=== PATIENT | female | born 1945 | race African-American/Black ===

== ENCOUNTER → 2018-01-18 | Outpatient (CLI) | payer OTHER | END | disposition home or self-care (01) | LOC: MAMMO 12:22 | DX: Z12.31 Encounter for screening mammogram for malignant neoplasm of breast (principal) | CPT/HCPCS: 77063; 77067 ==

== ENCOUNTER → 2018-09-24 | Outpatient (CLI) | payer OTHER ==
--- NOTE | 2018-09-24 11:25 | KCIC ---
EXAM: Dual energy x-ray absorptiometry (DEXA). HISTORY: Postmenopausal female presents for osteoporosis screening. COMPARISON: None. TECHNIQUE: Dual energy x-ray absorptiometry of the lumbar spine and left hip was performed. Calculation of bone mineral density based on standard deviations above or below the expected young adult normal value (T-score) was completed. FINDINGS: The average bone mineral density in the 1st through 4th lumbar vertebrae is 1.134 g/cmxcm, corresponding with a T-score of 0.8. The average total bone mineral density in the left hip is 0.881 g/cmxcm, corresponding with a T-score of -0.5. IMPRESSION: Normal bone mineral density. Note: Definitions established by the World Health Organization: 1. Normal: T-score is -1.0 or above. 2. Osteopenia: T-score is between -1.0 and -2.5 . 3. Osteoporosis: T-score is -2.5 or below. Electronically signed by: Ryann Salcedo MD (09/24/2018 11:22 AM) [place] [id number]
== END | disposition home or self-care (01) ==
LOC: KCIC DEXA 09:11
PROVIDERS: ATTEND Family Medicine
DX: Z13.820 Encounter for screening for osteoporosis (principal); N95.9 Unspecified menopausal and perimenopausal disorder
CPT/HCPCS: 77080

== ENCOUNTER → 2019-01-21 | Outpatient (CLI) | payer OTHER ==
--- NOTE | 2019-01-24 08:48 | RAD ---
DATE: 01/21/2019 1:43 PM EXAM: MAMMO TUTU SCREENING BILATERAL HISTORY: routine screening evaluation. COMPARISON: Prior mammographic imaging 01/18/2018, 10/23/2016, 10/22/2015, 10/15/2014 10/04/2013 Bilateral CC and MLO views of the breasts were performed. Bilateral breast tomosynthesis was performed in CC and MLO projections. This study was interpreted with the benefit of Computerized Aided Detection (CAD). FINDINGS: Breast Density: SCATTERED The breast parenchyma shows scattered fibroglandular densities. Breast parenchyma level B Benign calcifications are present. Asymmetry in the medial, inferior left breast is now more prominent, approximately 6 cm from the nipple. No suspicious left breast microcalcification. No suspicious masses, microcalcifications or architectural distortion is present to suggest malignancy in the right breast. The visualized axillae are unremarkable. IMPRESSION: Left breast focal asymmetry, findings for which additional imaging is advised. BI-RADS CATEGORY: 0 INCOMPLETE: NEEDS ADDITIONAL IMAGING EVALUATION AND/OR PRIOR MAMMOGRAMS FOR COMPARISON. RECOMMENDED FOLLOW-UP: ADD ADDITIONAL IMAGING Spot compression views with full field ML view and likely ultrasound of the left breast is recommended. PQRS compliance statement: Patient information was entered into a reminder system with a target due date for the next mammogram. Mammography is a sensitive method for finding small breast cancers, but it does not detect them all and is not a substitute for careful clinical examination. A negative mammogram does not negate a clinically suspicious finding and should not result in delay in biopsying a clinically suspicious abnormality. "Our facility is accredited by the [employer] Mammography Program."
== END | disposition home or self-care (01) ==
LOC: MAMMO 13:35
PROVIDERS: ATTEND Family Medicine
DX: Z12.31 Encounter for screening mammogram for malignant neoplasm of breast (principal); N64.89 Other specified disorders of breast
CPT/HCPCS: 77063; 77067

== ENCOUNTER → 2019-03-04 | Outpatient (CLI) | payer OTHER ==
--- NOTE | 2019-03-04 10:58 | RAD ---
DATE: 03/04/2019 EXAM: DIGITAL DIAGNOSTIC LT HISTORY: Abnormal mammogram COMPARISON: Multiple prior mammographic exams as far back as 08/10/2010 This study was interpreted with the benefit of Computerized Aided Detection (CAD). Breast Density: SCATTERED The breast parenchyma shows scattered fibroglandular densities. Breast parenchyma level B. FINDINGS: Left lower inner breast focal asymmetry is less evident upon spot compression imaging in the MLO and CC projections. Medial lateral view of the left breast again demonstrates this asymmetry. No suspicious changes are suggested as compared to multiple prior exams. IMPRESSION: Stable BI-RADS CATEGORY: 1 NEGATIVE RECOMMENDED FOLLOW-UP: 12M 12 MONTH FOLLOW-UP PQRS compliance statement: Patient information was entered into a reminder system with a target due date in one year for the next mammogram. Mammography is a sensitive method for finding small breast cancers, but it does not detect them all and is not a substitute for careful clinical examination. A negative mammogram does not negate a clinically suspicious finding and should not result in delay in biopsying a clinically suspicious abnormality. "Our facility is accredited by the [employer] Mammography [employer]."
== END | disposition home or self-care (01) ==
LOC: MAMMO 10:33
PROVIDERS: ATTEND Family Medicine
DX: R92.8 Other abnormal and inconclusive findings on diagnostic imaging of breast (principal)
CPT/HCPCS: 77065

== ENCOUNTER → 2020-02-03 | Outpatient (CLI) | payer MEDICARE, OTHER ==
--- NOTE | 2020-02-03 15:24 | KCIC ---
KNEE RIGHT 3V DATE: 02/03/2020 12:00 AM INDICATION: PRIMARY OSTEOARTHRITIS RT KNEE, PAIN 1-2 WEEKS, NO INJURY COMPARISON: None. FINDINGS: Bones: There is no evidence of acute fracture or dislocation. Superior patellar enthesophyte. Joints: Moderate medial compartment and patellofemoral compartment degenerative changes. Mild lateral compartment degenerative changes. There is no joint effusion. Miscellaneous: None. IMPRESSION: No acute osseous abnormality. Tricompartmental degenerative changes, worst and moderate in the medial and patellofemoral compartments. Electronically signed by: Hebert Alvarado MD (02/03/2020 3:21 PM) [id number]
== END ==
LOC: KCIC 14:04
PROVIDERS: ATTEND Family Medicine
DX: M17.11 Unilateral primary osteoarthritis, right knee (principal)
CPT/HCPCS: 73562

== ENCOUNTER → 2020-03-29 | Outpatient (CLI) | payer MEDICARE ==
--- NOTE | 2020-03-29 13:52 | KCIC ---
Chest radiograph 03/29/2020 12:00 AM INDICATION: Shortness of air. Occupational exposure. COMPARISON: None available TECHNIQUE: Frontal and lateral views of the chest are provided. FINDINGS: The cardiomediastinal silhouette is within normal limits. There are no pleural effusions. There is no pulmonary vascular congestion. There is no pneumothorax. The lungs are clear. No significant osseous abnormality is identified. IMPRESSION: No acute cardiopulmonary process. Electronically signed by: Bárbara Swan MD (03/29/2020 1:48 PM) [id number]
== END ==
LOC: KCIC 13:19
PROVIDERS: ATTEND Family Medicine
DX: R06.02 Shortness of breath (principal); Z57.39 Occupational exposure to other air contaminants
CPT/HCPCS: 71046

== ENCOUNTER → 2021-03-09 | Outpatient (CLI) | payer MEDICARE ==
--- NOTE | 2021-03-10 17:24 | KCIC ---
Digital Mammogram 2-D and 3-D Bilateral History: Routine screening Bilateral mammograms in CC and oblique projections were obtained with 2-D imaging and 3-D tomosynthes is imaging and reviewed on the workstation. Comparison: Mammograms from 01/21/2019, 01/18/2018, and 10/25/2016.. Findings: Breast Tissue Density B : There are scattered areas of fibroglandular density In the 9:00 position of the left breast, approximately 3 cm from the nipple at posterior depth, there is an area of possible architectural distortion. No other area of architectural distortion or eviden ce of a breast mass is seen. There are no malignant appearing calcifications. Impression: Possible architectural distortion in the 9:00 position of the left breast, 3 cm from the nipple, post erior depth. The patient gives no history of breast biopsy. Further evaluation with a diagnostic left mammogram, including 3-D rolled CC views and mediolateral views recommended. Targeted left breast ul trasound including axilla should also be performed. Assessment: BI-RADS Category 0. Incomplete. Additional imaging is recommended. Recommendation: Diagnostic left mammogram. Targeted left breast ultrasound. The patient will receive a letter with the results in the mail. Patient information will be entered i nto the mammography reminder system with a target recall date for the next mammogram. A reminder nahed er will be generated. Electronically signed by: Rose Bates MD (03/10/2021 5:22 PM) [email or web address]
== END ==
LOC: KCIC MAMMO 13:36
PROVIDERS: ATTEND Family Medicine
DX: Z12.31 Encounter for screening mammogram for malignant neoplasm of breast (principal)
CPT/HCPCS: 77063; 77067

== ENCOUNTER → 2021-03-31 | Outpatient (CLI) | payer MEDICARE ==
--- NOTE | 2021-03-31 15:02 | KCIC ---
Left breast diagnostic digital mammograms: Reason for examination: Possible architectural distortion on screening mammogram. Comparison is made to previous study dated 03/09/2021 and additional examinations dated back to. [place] compression views were obtained of the left breast in CC and true lateral projections. Parenchymal asymmetry remains present at the 8:00 position approximately 6.7 cm posterior to the nipp le. When compared to previous exams however this appears be slightly more prominent. No other nodule or architectural distortion is seen. IMPRESSION: Architectural distortion at the 8:00 B position of the left breast appears to be slightly more promin ent than on previous exams. No other architectural distortions or nodules are seen. Ultrasound to fol low. BI-RADS Category 0: Incomplete. Needs additional imaging evaluation. Left breast ultrasound: Left whole breast ultrasound including evaluation of all 4 quadrants and the retroareolar and axillar y regions of the left breast was performed. Ultrasound examination of the left breast was performed with attention to the area of mammographic co ncern. At the 8:00 position 4 cm from the nipple, there is a 6 x 4 x 4.2 mm focus of nodular asymmetr y with suggestion of some central calcification. This probably corresponds to the area of parenchymal asymmetry seen mammographically. Further evaluation with ultrasound-guided biopsy is recommended. No other focal lesions are seen. No abnormal appearing lymph nodes are seen in the axilla. IMPRESSION: 6 mm nodule at the 8:00 position 4 cm from the nipple. Further evaluation with ultrasound-guided biop sy is recommended. BI-RADS Category 4: Suspicious. These findings have been discussed with the patient and the patient's physician, Dr. Tejeda, was noti fied about these findings with message left on the nurse's answering machine at 3:00 PM on 03/31/2021 . "Our facility is accredited by the [employer] Mammography Program." This patient's information has been entered into a reminder system for the patient to be notified wit h the results of her examination and a target date for the next mammogram. Electronically signed by: Gilda Burks MD (03/31/2021 3:00 PM) [email or web address]
== END ==
LOC: KCIC MAMMO 12:57
PROVIDERS: ATTEND Family Medicine
DX: N63.24 Unspecified lump in the left breast, lower inner quadrant (principal)
CPT/HCPCS: 76641; 77065

== ENCOUNTER → 2021-04-21 | Outpatient (CLI) | payer MEDICARE ==
[~2021-04-21] MED LIST: LIDOCAINE 1% Multi-Dose 20 ML VIAL. INJ ONE
--- NOTE | 2021-04-21 10:46 | RAD ---
CLINICAL INDICATION: Left breast mass PRE-PROCEDURAL CONSULTATION: Details of the procedure and possible limitations and complications were discussed with the patient. After addressing her questions and concerns, written informed consent wa s obtained. A time out was then taken to verify patient's name and date of as well as site and laterality. PROCEDURE: The mass at the 8 o'clock position within the left breast was targeted under ultrasound. The skin of the left breast was cleansed and prepped in the typical sterile fashion. 9 cc of 1% lidoc cathy was used for local anesthesia. A small skin incision was then made to permit passage of a 14 ga uge spring activated biopsy device. 4 core specimens were obtained. An omega clip was then deployed at the biopsy site. Hemostasis was achieved. The patient tolerated the procedure well with no immediate complications. Post-procedural digital mammographic imaging of the right breast demonstrate the omega clip in approp riate position. IMPRESSION: Successful ultrasound guided core needle biopsy of a mass at the 8 o'clock position withi n the left breast. Pathology is pending. Electronically signed by: Bryson Hdz MD (04/21/2021 10:44 AM) [email or web address]
--- NOTE | 2021-04-25 15:07 | PATHOLOGY ---
[facility] Accession Number: [id number] . 01 Material submitted: . breast - LEFT BREAST MASS AT 8:00 4CMFN. Modifiers: left . 02 Diagnosis: Left breast mass at 8:00 4 cm from nipple, biopsy: - INVASIVE LOBULAR CARCINOMA, HISTOLOGIC GRADE 2. SEE COMMENT. (JPM/db/para educator; 04/22/2021) LBQ 04/25/2021 1419 Local . 02 Comment: Sections of the left breast mass at 8:00 needle biopsy reveal an invasive mammary carcinoma. The tumor cells are present in cords and small solid nests and show no evidence of tubule formation. The tumor cells are fairly uniform and possess rounded, mild to focally moderately pleomorphic nuclei. Mitotic figures are infrequent. The tumor is associated with a chronic inflammatory cell infiltrate. There are no tumor associated calcifications. There is no lymphovascular tumor invasion. A limited panel of immunoperoxidase stains is obtained and yields the following results: . AE1/AE3 (A1): Tumor cells positive. E-cadherin (A1): Tumor cells negative. AE1/AE3 (A2): Tumor cells positive. E-cadherin (A2): Tumor cells negative. . The morphologic and immunophenotypic findings are supportive of the diagnosis of an invasive lobular carcinoma, histologic grade 2. The invasive carcinoma measures approximately 8 mm in greatest dimension on the glass slide. The case is also examined by Dr. Ledesma, who concurs with the diagnosis. Breast prognostic studies will be obtained on A1, the results of which will be reported separately. . (JPM/db.para educator; 04/22/2021) . Special stains performed: Immunoperoxidase stains for AE1/AE3 on A1 and A2 and for E-cadherin on A1 and A2. . 02 Electronically signed: . Néstor Spaulding MD, Pathologist NPI- [id number] . 01 Gross description: . The specimen is received in formalin, labeled "Karo [place], left breast, 800, 4 cm FN". Received are 3 needle cores of fibrofatty tissue measuring 1.2 x 0.6 x 0.2 cm in aggregate dimensions. The specimen is submitted entirely in cassettes A1-A3. The specimen is collected at 1037 and placed into formalin 1038 on 04/21/2021. The specimen is removed from formalin at 1840 on 04/21/2021. The total formalin fixation time is 7 hours and 58 minutes. ([facility]; 04/21/2021) NRI/NRI 04/21/2021 1505 Local . 02 Pathologist provided ICD-10: C50.911 . 02 CPT . 934949, [id number], [id number] Specimen Comment: A courtesy copy of this report has been sent to [phone], [phone] Specimen Comment: [id number] Specimen Comment: Report sent to / DR PELAEZ Specimen Comment: A duplicate report has been generated due to demographic updates. Performed at: 01 [facility] [address] [facility] [address], [place], [place] [id number] MD Jacob Ledesma MD Phone: [phone] Performed at: 02 [facility] [place] [address] [place], [place] [id number] MD Néstor Spaulding MD Phone: [phone]
== END | disposition home or self-care (01) ==
LOC: US 08:42
PROVIDERS: ATTEND Family Medicine
DX: N63.24 Unspecified lump in the left breast, lower inner quadrant (principal); R92.8 Other abnormal and inconclusive findings on diagnostic imaging of breast
CPT/HCPCS: 19083; 77065; A4648; C1819; 88305; 88341; 88342; 88361